=== PATIENT | male | born 1995 | race Caucasian/White ===

== ENCOUNTER 2021-05-29 13:12 | Emergency (ER) | payer BC ==
[~2021-05-29] VITALS: Ht 188 cm; Wt 79.6 kg
[~2021-05-29 13:12] MED LIST: LIDOcaine 1% W/epiNEPHrine 1:100,000 20ml vial ONE; NO HOME MEDS
[2021-05-29] MEDS ORDERED: acetaminophen 325mg tablet PO ONE (14:40)
[2021-05-29] MEDS ORDERED: LIDOcaine/epinephrine/tetracaine TOPICAL sol 3 ML syringe TOP ONE (14:45)
[2021-05-29] MEDS ORDERED: bacitracin 15gm ointment TP ONE (14:45)
[2021-05-29] MEDS ORDERED: TETanus/Pertussis (Acell)/Diphther VAC/PF (Tdap-Adult) 0.5ml syringe IMVAC ONE (14:45)
[2021-05-29] MEDS ORDERED: LIDOcaine 2% 10ml TOPICAL JELLY (Urojet) MM ONE (15:50)
--- NOTE | 2021-05-29 16:13 | NUR ---
PT NOSE CLEANED OUT WITH UROJET PER MD REQUEST PT TOLERATED WELL
[2021-05-29] MEDS ORDERED: ondansetron 4mg rapidly disintigrating tab PO ONE (16:30)
[2021-05-29] MEDS ORDERED: sulfamethoxazole/trimethoprim DS (800/160mg) tablet PO ONE (17:10)
[2021-05-29 17:41] VITALS: BP 140/90
[2021-05-29] MEDS ORDERED: SULF1TAB45 PO (17:44)
[2021-05-29] MEDS ORDERED: ONDA8TAB13 PO (17:44)
== END 2021-05-29 17:57 | disposition home or self-care (01) ==
LOC: ER 13:12
DX: S02.2XXB Fracture of nasal bones, initial encounter for open fracture (principal); S01.21XA Laceration without foreign body of nose, initial encounter; V49.3XXA Car occupant (driver) (passenger) injured in unspecified nontraffic accident, initial encounter; Y93.89 Activity, other specified; Y92.89 Other specified places as the place of occurrence of the external cause; Y99.8 Other external cause status
CPT/HCPCS: 70450; 70486; 72125; 90715; 99284; J3490